=== PATIENT | female | born 1950 | race Caucasian/White ===

== ENCOUNTER 2018-02-08 07:24 | Day surgery (SDC) | payer OTHER ==
[~2018-02-08 07:24] MED LIST: PROTONIX40 MG PO; ZOFRAN4 MG PO
== END 2018-02-08 13:30 | disposition home or self-care (01) ==
LOC: AMB-ENDOS 07:24
DX: K57.30 Diverticulosis of large intestine without perforation or abscess without bleeding (principal); K64.1 Second degree hemorrhoids